=== PATIENT | male | born 1995 ===

== ENCOUNTER 2017-09-17 14:18 | Emergency (ER) | payer OTHER ==
[2017-09-17] MEDS ORDERED: LIDOCAINE HCL 2% MPF SOL SC ONE (14:20)
[2017-09-17] MEDS ORDERED: LIDOCAINE HCL 1% MPF SOL ONE (14:23)
[2017-09-17 14:30] VITALS: RESP 20
[2017-09-17] MEDS ORDERED: LIDOCAINE HCL 1% MDV SOL SC ONE (14:30)
[2017-09-17] MEDS ORDERED: TDAP VACCINE 0.5 ML SUS IM ONE (14:55)
[2017-09-17 15:16] VITALS: BP 134/90; PULSE 90; TEMP 99.1; O2SAT 97
== END 2017-09-17 15:38 | disposition home or self-care (01) | DRG 914 ==
LOC: ED 14:18
DX: S61.042A Puncture wound with foreign body of left thumb without damage to nail, initial encounter (principal); W45.0XXA Nail entering through skin, initial encounter
CPT/HCPCS: 73140; 90471; 90715; 99282; 99283; A6402; J2001